=== PATIENT | male | born 1990 | race Caucasian/White ===

== ENCOUNTER 2024-06-05 03:17 | Emergency (ER) | payer MEDICAID, OTHER ==
[~2024-06-05] VITALS: Ht 165.1 cm; Wt 79.5 kg
[2024-06-05] MEDS: proCHLORperazine 10 MG/2 ml inj IV ONE (03:40)
[2024-06-05] MEDS ORDERED: AMLO10TA13 PO (04:49)
[2024-06-05 05:18] LABS: BASOPHILS % (AUTO) 0.4 % (0-1); EOSINOPHILS # (AUTO) 0.2 X10'3 (0-0.9); EOSINOPHILS % (AUTO) 1.5 % (0-6); HEMATOCRIT 44.6 % (42.0-52.0); HEMOGLOBIN 15.6 g/dl (14.0-17.9); LYMPHOCYTES # (AUTO) 2.1 X10'3 (1.1-4.8); LYMPHOCYTES % (AUTO) 20.9 % (21-51); MEAN CORPUSCULAR HEMOGLOBIN 30.6 PG (27.0-31.0); MEAN CORPUSCULAR HGB CONC 34.9 g/dL (33.0-36.5); MEAN CORPUSCULAR VOLUME 87.7 FL (78-98); MEAN PLATELET VOLUME 9.2 FL (7.4-10.4); MONOCYTES # (AUTO) 0.6 X10'3 (0-0.9); MONOCYTES % (AUTO) 5.5 % (2-12); NEUTROPHILS # (AUTO) 7.4 X10'3 (1.8-7.7); NEUTROPHILS % (AUTO) 71.7 % (42-75); PLATELET COUNT 163 X10'3 (140-440); RED BLOOD COUNT 5.09 X10'6 (4.70-6.10); RED CELL DISTRIBUTION WIDTH 13.4 % (11.5-14.5); WHITE BLOOD COUNT 10.2 X10'3 (4.5-11.0)
[2024-06-05 05:42] LABS: ALANINE AMINOTRANSFERASE 49 U/L (12-78); ALBUMIN 4.2 G/DL (3.4-5.0); ALBUMIN/GLOBULIN RATIO 1.6 (1.1-1.5); ALKALINE PHOSPHATASE 52 IU/L (46-116); ANION GAP 11 (8-16); ASPARTATE AMINO TRANSFERASE 27 U/L (10-37); BILIRUBIN,TOTAL 0.9 MG/DL (0.1-1.0); BLOOD UREA NITROGEN 9 MG/DL (7-18); BUN/CREATININE RATIO 10.5 (10.0-20.0); CALCIUM 8.6 MG/DL (8.5-10.1); CHLORIDE 106 MMOL/L (99-107); CREATININE 0.86 MG/DL (0.60-1.10); GLUCOSE 124 MG/DL (70-104); POTASSIUM 3.3 MMOL/L (3.5-5.1); SODIUM 140 MMOL/L (135-145); TOTAL CARBON DIOXIDE 22.7 MMOL/L (24-32); TOTAL PROTEIN 6.8 G/DL (6.4-8.2); eCRCL 106 ML/MIN; eGFR > 90 ML/MIN
[2024-06-05] MEDS: normal saline 1000ml 1,000 ML IV ONE (07:42)
[2024-06-05] MEDS: diphenhydrAMINE 50 mg/ml inj IV ONE (07:47)
[2024-06-05 09:54] VITALS: TEMP 97.8
[2024-06-05] MEDS: cloNIDine 0.1 mg tablet PO ONE (10:23)
[2024-06-05 10:28] VITALS: BP 163/98; PULSE 80; RESP 16; O2SAT 98
== END 2024-06-05 10:30 | disposition home or self-care (01) ==
LOC: ER 03:18
DX: R51.9 Headache, unspecified (principal); I10 Essential (primary) hypertension; J45.909 Unspecified asthma, uncomplicated; Z88.0 Allergy status to penicillin; Z79.899 Other long term (current) drug therapy; Z72.89 Other problems related to lifestyle; W13.0XXA Fall from, out of or through balcony, initial encounter; Y93.89 Activity, other specified; Y92.89 Other specified places as the place of occurrence of the external cause; Y99.8 Other external cause status
CPT/HCPCS: 36415; 70450; 80053; 84484; 85025; 93005; 96361; 96374; 99285; J1200; J7030

== ENCOUNTER 2025-02-01 11:28 | Emergency (ER) | payer OTHER ==
[~2025-02-01] VITALS: Ht 165.1 cm; Wt 87.4 kg
[~2025-02-01 11:28] MED LIST: AMLO10TA13 PO
[2025-02-01 11:38] VITALS: PULSE 69; RESP 18; TEMP 97.6
--- NOTE | 2025-02-01 12:04 | RADIOLOGY REPORT ---
DI CHEST,TWO VIEWS, HISTORY: COUGH WITH BACK PAIN COMPARISON: None None TECHNICAL DATA: 2 view of the chest was obtained. FINDINGS: Lines and tubes: None Cardiomediastinal silhouette: normal Pulmonary vasculature: normal Lung expansion: normal Lung airspace: normal Lung interstitium: normal Pleura: normal Pneumothorax: no Bones: Lateral left clavicle hardware is noted. Other: no IMPRESSION: No acute intrathoracic abnormality.
--- NOTE | 2025-02-01 13:12 | Physician Documentation ---
History of Present Illness ~ Chief Complaint: Cough Stated Complaint: BACK PAIN Time Seen by MD: 11:59 Primary Medical Doctor: NONE HPI Patient is seen today with complaints of having a cough that developed about three weeks ago. Patient does admit to smoking about a pack a day. He states he did quit once before but states he is back to smoking again. He states he started with a sore throat which developed into a cough few weeks ago. He denies any fever or chills or body aches but states he does have pain in his ribs with inspiration sometimes and with coughing. He has no other concern or complaint at this time. Medication Reconciliation Allergies: Coded Allergies: Penicillins (Verified Allergy, Unknown, 06/05/24) Scheduled Amlodipine Besylate (Amlodipine Besylate), 1 TAB PO DAILY Past Medical History Past Medical History: Asthma, Bronchitis Past Surgical History: no surgical history Other Past Family History: NONE Alcohol Use: Occasionally Drug Use: none Lives In: Home Review of Systems Constitutional: Denies: chills, fever, weakness Eyes: Denies: pain, blurred vision ENT: Denies: ear pain, nose pain, throat pain, mouth pain Respiratory: Denies: cough, shortness of breath Cardiovascular: Denies: chest pain, palpitations Gastrointestinal: Denies: abdominal pain, nausea, vomiting Genitourinary: Denies: burning, dysuria Male Genitalia: Denies: penile discharge, testicular pain Neurological: Denies: headache, dizziness Musculoskeletal: Denies: pain, swelling Integumentary: Denies: rash, lesions Allergic/Immunologic: Denies: hives, itching Hematologic/Lymphatic: Denies: no symptoms reported Psychiatric: Denies: depression, anxiety Physical Exam Vital Signs: Temperature: 97.6, Source: Temporal, Heart Rate: 69, Respiratory Rate: 18, BP: 189/119, Pulse Oximetry: 96, Weight: 87.400 Oxygen Flow Rate: 0 Physical Exam General: Awake and Alert, no acute distress. HEENT: Conjunctiva pink, Sclera clear, Mucus Membranes moist. Neck: Supple without masses and tenderness. Resp: Unlabored. Lungs clear to auscultation bilaterally. Heart: Regular Rate and rhythm, normal S1 and S2 without murmur, rub or gallop. Abdomen: Soft and non tender no organomegaly Extremities: No cyanosis,clubbing or edema. Skin: Warm and Dry. Progress Results/Orders Results/Orders Vital Signs 02/01/25 11:38 Temp 97.6 Pulse 69 Resp 18 B/P (MAP) 189/119 Pulse Ox 96 O2 Flow Rate 0 Medical Decision Making Additional information obtaine: N/A Findings Patient is seen today with complaints of having a cough that developed about three weeks ago. Patient does admit to smoking about a pack a day. He states he did quit once before but states he is back to smoking again. He states he started with a sore throat which developed into a cough few weeks ago. He denies any fever or chills or body aches but states he does have pain in his ribs with inspiration sometimes and with coughing. He has no other concern or complaint at this time. Patient did have chest x-ray performed today in the ED that showed no acute abnormality no sign of pneumonia. Patient was strongly advised to stop smoking and was prescribed nicotine patches 14 mg and will follow up with primary care for further nicotine prescription. Patient will return to ED in 5-7 days if no better as needed sooner. Follow up with primary care in 3-5 days if no better as needed sooner. Differential Dx:Considerations: Include: Allergic rhinitis, Influenza; Unlikely: Otitis media, Peritonsillar abscess, Pharyngitis-Diphtheria, Pharyngitis-Streptoccal, Pharyngitis-Viral, Pneumonia, Pnuemonitis, Sinusitis, URI, Other Differential Diagnosis smokers cough, bronchitis, pneumonia Departure Disposition: HOME / SELF CARE / HOMELESS Impression: Primary Impression: Cough Qualified Codes: R05.1 - Acute cough Additional Impressions: Smoking addiction Viral URI with cough Condition: Stable Discharge Instructions: Cough, Adult Additional Instructions: Patient did have chest x-ray performed today in the ED that showed no acute abnormality no sign of pneumonia. Patient was strongly advised to stop smoking and was prescribed nicotine patches 14 mg and will follow up with primary care for further nicotine prescription. Patient will return to ED in 5-7 days if no better as needed sooner. Follow up with primary care in 3-5 days if no better as needed sooner. Referrals: NO PRIMARY CARE PROVIDER (PCP) Prescriptions Nicotine 14 MG Patch* (Habitrol 14 MG Patch*) 1 Each Patch.td24 1 PATCH TOP DAILY for smoking cessation for 28 Days, #28 PATCH Prov: ANTONIO BENITEZ PAC 02/01/25 Signature Scribe Signature: No scribe Attestation: No scribe ANTONIO BENITEZ R PAC Feb 01, 2025 13:12
[2025-02-01] MEDS ORDERED: NICO-631 TOP (13:15)
[2025-02-01 13:36] VITALS: BP 165/98; O2SAT 98
== END 2025-02-01 13:37 | disposition home or self-care (01) ==
LOC: ER 11:29
DX: J06.9 Acute upper respiratory infection, unspecified (principal); B97.89 Other viral agents as the cause of diseases classified elsewhere; J45.909 Unspecified asthma, uncomplicated; F17.210 Nicotine dependence, cigarettes, uncomplicated; Z88.0 Allergy status to penicillin
CPT/HCPCS: 71046; 99283